=== PATIENT | male | born 2000 | race Caucasian/White ===

== ENCOUNTER 2018-04-13 16:35 | Emergency (ER) | payer OTHER ==
[2018-04-13] MEDS ORDERED: NS 1,000 ML IV ONE ×3 (17:04→19:01)
--- NOTE | 2018-04-13 17:06 | EDPHY ---
H & P Time Seen by Provider: 04/13/18 16:58 HPI/ROS: CHIEF COMPLAINT: Nausea and vomiting HISTORY OF PRESENT ILLNESS: Had 4 beers last night and several shots, woke up at 2:00 p.m. Today with nausea multiple episodes of vomiting and some epigastric pain. Worse with oral intake. No diarrhea. Symptoms moderate to severe her, received Zofran and IV fluids by EMS prior to arrival. REVIEW OF SYSTEMS: Eye: no change in vision ENT: no sore throat Cardiac: no chest pain or syncope Pulmonary: no cough or SOB Abdomen: HPI Musculoskeletal: no back pain Skin: no rash Neuro: no headache Constitutional: no fever : no urinary symptoms A comprehensive 10 point review of systems is otherwise negative aside from elements mentioned in the history of present illness. PAST MEDICAL HISTORY: Negative Social history: Recent alcohol as above General Appearance: Alert and conversant, cooperative. Eyes: No scleral icterus. ENT, Mouth: Dry mucous membranes Respiratory: Normal respiratory effort, breath sounds equal, lungs are clear to auscultation. Cardiovascular: Regular rate and rhythm. Gastrointestinal: Abdomen is soft and non tender. Mild epigastric tenderness but no rebound or guarding Neurological: Alert, face symmetric, normal motor and sensory in extremities. Skin: Warm and dry, no rashes. Musculoskeletal: No peripheral edema. Psychiatric: Not agitated. Emergency Department course/MDM: Given additional L IV normal saline. Labs done because epigastric discomfort but negative lipase and LFTs noted at 5:30 p.m.. 180: still some R sided tenderness, WBC 24K, CT discussed and consented, concern for appendicitis. 1899: CT shows normal appendix, per Richard. Jejunal enteritis. 2012: feels better, soft NT, results discussed. More likely viral enteritis, discharge with supportive care. Smoking Status: Never smoked Constitutional: Initial Vital Signs Temperature (C) 36.9 C 04/13/18 16:40 Heart Rate 98 04/13/18 16:40 Respiratory Rate 16 04/13/18 16:40 Blood Pressure 119/72 04/13/18 16:40 O2 Sat (%) 99 04/13/18 16:40 O2 Delivery Mode Room Air Allergies/Adverse Reactions: No Known Allergies Allergy (Unverified 04/13/18 16:40) Home Medications: Medication Instructions Recorded NK [No Known Home Meds] 04/13/18 Medical Decision Making - Diagnostics Imaging Results: Imaging Impressions Abdomen CT 04/13/18 18:02 Impression: 1. Query mild jejunal enteritis. 2. Normal CT appearance of the appendix. Findings were discussed with ALVIN SCHWARTZ MD at 18:59, on 04/13/2018. Imaging: Discussed imaging studies w/ calliope player Radiologist Differential Diagnosis: Differential diagnosis considered for abdominal pain including but not limited to appendicitis, pancreatitis, bowel obstruction, gastroenteritis - Data Points Laboratory Results: Laboratory Results 04/13/18 16:30 04/13/18 16:30 04/13/18 04/13/18 16:30 16:30 WBC 24.13 10^3/uL H 10^3/uL (3.80-9.50) RBC 5.59 10^6/uL 10^6/uL (4.40-6.38) Hgb 18.9 g/dL H g/dL (13.7-17.5) Hct 53.9 % H % (40.0-51.0) MCV 96.4 fL fL (81.5-99.8) MCH 33.8 pg pg (27.9-34.1) MCHC 35.1 g/dL g/dL (32.4-36.7) RDW 11.9 % % (11.5-15.2) Plt Count 323 10^3/uL 10^3/uL (150-400) MPV 9.6 fL fL (8.7-11.7) Neut % (Auto) 86.9 % H % (39.3-74.2) Lymph % (Auto) 8.3 % L % (15.0-45.0) [place] % (Auto) 3.4 % L % (4.5-13.0) Eos % (Auto) 0.0 % L % (0.6-7.6) Baso % (Auto) 0.3 % % (0.3-1.7) Nucleat RBC Rel Count 0.0 % % (0.0-0.2) Absolute Neuts (auto) 20.97 10^3/uL H 10^3/uL (1.70-6.50) Absolute Lymphs (auto) 2.00 10^3/uL 10^3/uL (1.00-3.00) Absolute Monos (auto) 0.82 10^3/uL H 10^3/uL (0.30-0.80) Absolute Eos (auto) 0.00 10^3/uL L 10^3/uL (0.03-0.40) Absolute Basos (auto) 0.07 10^3/uL 10^3/uL (0.02-0.10) Absolute Nucleated RBC 0.00 10^3/uL 10^3/uL (0-0.01) Immature Gran % 1.1 % % (0.0-1.1) Immature Gran # 0.27 10^3/uL H 10^3/uL (0.00-0.10) RBC/WBC/PLT Morphology TNP Platelet Estimate TNP Sodium 143 mEq/L mEq/L (135-145) Potassium 3.9 mEq/L mEq/L (3.3-5.0) Chloride 102 mEq/L mEq/L (97-110) Carbon Dioxide 16 mEq/l L mEq/l (22-31) Anion Gap 25 mEq/L H mEq/L (8-16) BUN 16 mg/dL mg/dL (7-23) Creatinine 1.0 mg/dL mg/dL (0.7-1.3) Estimated GFR > 60 Glucose 40 mg/dL L mg/dL (70-100) Calcium 10.0 mg/dL mg/dL (8.5-10.4) Total Bilirubin 1.2 mg/dL mg/dL (0.1-1.4) Conjugated Bilirubin 0.4 mg/dL mg/dL (0.0-0.5) Unconjugated Bilirubin 0.8 mg/dL mg/dL (0.0-1.1) AST 73 IU/L H IU/L (17-59) ALT 58 IU/L IU/L (21-72) Alkaline Phosphatase 79 IU/L IU/L (38-126) Total Protein 8.5 g/dL H g/dL (6.3-8.2) Albumin 5.6 g/dL H g/dL (3.5-5.0) Lipase 66 IU/L IU/L (23-300) Medications Given: Discontinued Medications Sodium Chloride (Ns) 1,000 mls @ 0 mls/hr IV ONCE ONE; Wide Open PRN Reason: Protocol Stop: 04/13/18 17:05 Last Admin: 04/13/18 17:07 Dose: 1,000 mls Sodium Chloride (Ns) 1,000 mls @ 0 mls/hr IV EDNOW ONE; Wide Open PRN Reason: Protocol Stop: 04/13/18 17:24 Last Admin: 04/13/18 17:30 Dose: 1,000 mls Sodium Chloride (Ns) 1,000 mls @ 0 mls/hr IV EDNOW ONE; Wide Open PRN Reason: Protocol Stop: 04/13/18 19:02 Last Admin: 04/13/18 20:24 Dose: Not Given Ondansetron HCl (Zofran Odt 4 Mg Prepack#2) 1 btl TAKEHOME EDNOW ONE Stop: 04/13/18 19:02 Last Admin: 04/13/18 20:22 Dose: 1 btl Departure - Departure Disposition: Home, Routine, Self-Care Clinical Impression: Nausea & vomiting Qualifiers: Vomiting type: unspecified Vomiting Intractability: non-intractable Qualified Code(s): R11.2 - Nausea with vomiting, unspecified Condition: Good Instructions: Acute Nausea and Vomiting (ED) [facility] [Clinic] - As per Instructions
[2018-04-13 17:20] LABS: PLATELET COUNT 323 10^3/uL (150-400)
[2018-04-13] MEDS ORDERED: IOPAMIDOL (ISOVUE-300) 100 ML BTL ONE (18:11)
[2018-04-13] MEDS ORDERED: ONDANSETRON 4MG PREPACK#2 BTL TAKEHOME ONE (19:01)
[2018-04-13 20:27] VITALS: BP 102/55
== END 2018-04-13 20:27 | disposition home or self-care (01) ==
DX: R11.2 Nausea with vomiting, unspecified (principal); E86.9 Volume depletion, unspecified
CPT/HCPCS: Q9967